=== PATIENT | male | born 1980 | race Caucasian/White ===

== ENCOUNTER 2021-06-24 18:35 | Emergency (ER) | payer MEDICAID ==
[2021-06-24] MEDS ORDERED: Ibuprofen 600 MG Tab PO ONE (19:31)
== END 2021-06-24 20:35 | disposition home or self-care (01) ==
LOC: LL.ED 18:35
DX: S62.366A Nondisplaced fracture of neck of fifth metacarpal bone, right hand, initial encounter for closed fracture (principal); Z88.0 Allergy status to penicillin; Z87.891 Personal history of nicotine dependence; W22.09XA Striking against other stationary object, initial encounter
CPT/HCPCS: 29125; 73130-RT; 99283; 99283-25; A9270-GY